=== PATIENT | female | born 1970 | race Caucasian/White ===

== ENCOUNTER 2019-08-16 07:07 | Day surgery (SDC) | payer BC ==
[2019-08-16] MEDS ORDERED: Sodium Chloride 0.9% 1,000 ML IV SCH (07:45)
[2019-08-16] MEDS ORDERED: fentaNYL 100 MCG/2 ML SDV ONE (08:22)
[2019-08-16] MEDS ORDERED: Propofol 200 MG/20 ML SDV ONE (08:22)
[2019-08-16] MEDS ORDERED: Midazolam 1 MG/ML 2 ML SDV ONE (08:22)
--- NOTE | 2019-08-16 14:16 | OR ---
DATE OF PROCEDURE: 08/16/2019 SURGEON: Dae Fulton MD PROCEDURE: Colonoscopy. FINDINGS: Normal colonoscopy. PREOPERATIVE DIAGNOSIS: Positive FIT test. POSTOPERATIVE DIAGNOSIS: Positive FIT test. RISKS: Risks, benefits, alternatives, and limitations including, but not limited to infection, bleeding, and perforation were explained the patient, who wished to proceed. PROCEDURE IN DETAIL: The patient was placed in left lateral decubitus position. Digital rectal exam was performed without abnormality. Scope was introduced, advanced atraumatically to the ileocecal valve. Scope was brought back through the ascending, transverse, descending colon, and retroflexed. No evidence of old or new blood. No masses. No polyps. No diverticulosis. No abnormalities on retroflexion. No etiology for the positive FIT test. The prep was fairly acceptable and greater than 90% luminal surface could be seen. The patient tolerated the procedure well. Dae Fulton MD /[id number]
== END 2019-08-16 10:29 | disposition home or self-care (01) ==
LOC: JP.SDS 07:07
PROVIDERS: ATTEND Surgery
DX: R19.5 Other fecal abnormalities (principal); K21.9 Gastro-esophageal reflux disease without esophagitis; Z88.2 Allergy status to sulfonamides
CPT/HCPCS: 45378; 81025; J2250; J2704; J3010; J7030